=== PATIENT | female | born 1940 | race Two or more races ===

== ENCOUNTER 2020-12-21 08:56 | Emergency (ER) | payer MEDICARE, MEDICAID ==
[~2020-12-21] VITALS: Ht 162.6 cm; Wt 72.6 kg
[2020-12-21 10:50] LABS: Basophils # (auto) 0 10 ^3/uL (0-0.2); Basophils % (auto) 0.4 % (0.0-2.0); Eosinophils # (auto) 0 10 ^3/uL (0-0.8); Eosinophils % (auto) 0.4 % (0.0-7.0); Hematocrit 32.3 % (36.0-46.0); Hemoglobin 11.2 g/dL (12.2-16.2); Lymphocytes # (auto) 0.4 10 ^3/uL (0.4-5.4); Lymphocytes % (auto) 3.2 % (10.0-50.0); Mean Corpuscular Hemoglobin 32.3 pg (28.0-32.0); Mean Corpuscular Hgb Conc. 34.5 g/dL (32.0-36.0); Mean Corpuscular Volume 93.4 fL (80.0-100.0); Monocytes # (auto) 0.4 10 ^3/uL (0-1.3); Monocytes % (auto) 3.8 % (0.0-12.0); Neutrophils # (auto) 10.9 10 ^3/uL (1.6-8.6); Neutrophils % (auto) 92.2 % (37.0-80.0); Red Blood Cells 3.46 10^6/uL (4.0-5.20); Red Cell Distribution Width 13.7 % (11.8-14.3); White Blood Cell 11.9 10^3/uL (4.4-10.8)
[2020-12-21 11:03] LABS: Calcium 8.1 mg/dL (8.5-10.1); Potassium 4.2 mmol/L (3.5-5.1)
[2020-12-21 11:06] LABS: BUN/Creatinine Ratio 6.5; Bilirubin, Total 0.3 mg/dL (0.2-1.0); Total Protein 5.9 g/dL (6.4-8.2)
[2020-12-21] MEDS ORDERED: SODIUM CHLORIDE 0.9% 1,000 ML IV ONE (13:00)
[2020-12-21 15:17] LABS: Amphetamine Screen, Urine NEGATIVE (NEGATIVE); Barbiturate Scree,Urine NEGATIVE (NEGATIVE); Benzodiazephine Screen, Urine NEGATIVE (NEGATIVE); Cannabinoid Screen, Urine NEGATIVE (NEGATIVE); Cocaine Screen, Urine NEGATIVE (NEGATIVE); Opiate Scree,Urine NEGATIVE (NEGATIVE); Phencyclidine Screen, Urine NEGATIVE (NEGATIVE)
[2020-12-21 16:01] LABS: Urine Bacteria MOD /hpf (None Seen); Urine Blood 3+ /uL (Negative); Urine Specific Gravity 1.015 (1.001-1.035); Urine WBC 374 /hpf (0 - 5); Urine WBC Clumps PRESENT /hpf (None Seen)
[2020-12-21] MEDS ORDERED: cefTRIAXone 1GM/50ML D5W 50 ML IV ONE (16:15)
[2020-12-21] MEDS ORDERED: metroNIDAZOLE 500MG/100ML 100 ML IV ONE (16:15)
[2020-12-21 17:18] VITALS: BP 154/39
[2020-12-21] MEDS ORDERED: MORPHINE SULFATE INJECTION 2 MG/ML SYRG IV PRN (19:15)
[2020-12-21] MEDS ORDERED: NITROGLYCERIN 0.4 MG SL TAB SL PRN (19:15)
== END 2020-12-21 19:04 | disposition left against medical advice (07) ==
LOC: EDBD 08:56 → ER 08:56
DX: R41.82 Altered mental status, unspecified (principal); N12 Tubulo-interstitial nephritis, not specified as acute or chronic; R18.8 Other ascites; F03.90 Unspecified dementia, unspecified severity, without behavioral disturbance, psychotic disturbance, mood disturbance, and anxiety; G20 Parkinson's disease; N26.1 Atrophy of kidney (terminal); K80.20 Calculus of gallbladder without cholecystitis without obstruction; M47.896 Other spondylosis, lumbar region; M16.0 Bilateral primary osteoarthritis of hip; E43 Unspecified severe protein-calorie malnutrition; E11.22 Type 2 diabetes mellitus with diabetic chronic kidney disease; E11.65 Type 2 diabetes mellitus with hyperglycemia; N18.6 End stage renal disease; Z99.2 Dependence on renal dialysis; Z88.8 Allergy status to other drugs, medicaments and biological substances; Z68.27 Body mass index [BMI] 27.0-27.9, adult
CPT/HCPCS: 36415; 70450; 71045; 72131; 72192; 74176; 80053; 80307; 81001; 83735; 84443; 85025; 87086; 87088; 87186; 93005; 96361; 96365; 96367; 99285; J0696; J3490; J7030